=== PATIENT | male | born 1990 | race Caucasian/White ===

== ENCOUNTER 2016-05-04 03:29 | Emergency (ER) | payer OTHER ==
[2016-05-04 04:03] LABS: % IMMATURE GRANULYOCYTES 0.1 % (0.0-1.1); ABSOLUTE IMMATURE GRANULOCYTES 0.01 10^3/uL (0.00-0.10); ADD DIFF? NO; ADD MORPH? NO; ADD SCAN? NO; ATYPICAL LYMPHOCYTE FLAG 10 (0-99); FRAGMENT RBC FLAG 0 (0-99); HEMATOCRIT 43.8 % (40.0-51.0); HEMOGLOBIN 15.3 g/dL (13.7-17.5); LEFT SHIFT FLG 0 (0-99); LIPEMIA HEMOLYSIS FLAG 90 (0-99); MEAN CELL HEMOGLOBIN 30.1 pg (27.9-34.1); MEAN CELL HEMOGLOBIN CONCENTR. 34.9 g/dL (32.4-36.7); MEAN CELL VOLUME 86.2 fL (81.5-99.8); MEAN PLATELET VOLUME 9.5 fL (8.7-11.7); PLATELET CLUMPS FLAG 0 (0-99); PLATELET COUNT 217 10^3/uL (150-400); RED BLOOD CELL COUNT 5.08 10^6/uL (4.40-6.38); RED CELL DISTRIBUTION WIDTH 12.6 % (11.5-15.2)
[2016-05-04 04:17] LABS: ANION GAP 16 mEq/L (8-16); CALCIUM 9.7 mg/dL (8.5-10.4); CARBON DIOXIDE 20 mEq/l (22-31); CHLORIDE 107 mEq/L (97-110); ETHANOL SERUM < 10 mg/dL (0-10); GLOMERULAR FILTRATION RATE > 60; GLUCOSE 131 mg/dL (70-100); POTASSIUM 3.9 mEq/L (3.5-5.2); SODIUM 143 mEq/L (134-144)
--- NOTE | 2016-05-04 04:38 | EDPHY ---
H & P Stated Complaint: delusional, paranoia, possibly d/t marijuana use Source: Patient, Family Exam Limitations: No limitations - Personal History Current Tetanus/Diphtheria Vaccine: Yes - Medical/Surgical History Hx Asthma: No Hx Chronic Respiratory Disease: No Hx Diabetes: No Hx Cardiac Disease: No Hx Renal Disease: No Hx Cirrhosis: No Hx Alcoholism: No Hx HIV/AIDS: No Hx Splenectomy or Spleen Trauma: No Other PMH: PMHx: denies. PSHx: r ankle, r shoulder - Social History Smoking Status: Never smoked Time Seen by Provider: 05/04/16 03:53 HPI/ROS: HPI The patient presents with paranoia and delusions which have been present for the last several months but became worse today. The patient thinks that his girlfriend is part of the FBI and his food is being poisoned. He says he thinks his family brought him to the emergency room so that he would . The patient says that he is letting people down and has a disappointment. He has not been sleeping much for the last several weeks, waking up frequently at night. He did a 7 day fast recently and has generally not been eating much; today he only ate eggs. He does use marijuana daily and was visiting family in [place] and probably used more marijuana than usual, he returned from [facility] days ago. 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 REVIEW OF SYSTEMS Constitutional: No fever, no chills. Eyes: No discharge. ENT: No sore throat. Cardiovascular: No chest pain, no palpitations. Respiratory: No cough, no shortness of breath. Gastrointestinal: No abdominal pain, no vomiting. Genitourinary: No hematuria. Musculoskeletal: No back pain. Skin: No rashes. Neurological: No headache. PMHx: No diabetes, no asthma Soc Hx: Here with his mother and girlfriend, graduated from [employer] FHx: No family history of psychiatric disease PHYSICAL General Appearance: Alert, no distress Eyes: Pupils equal and round no pallor or injection ENT, Mouth: Mucous membranes moist Respiratory: There are no retractions, lungs are clear to auscultation Cardiovascular: Regular rate and rhythm Gastrointestinal: Abdomen is soft and non-tender, no masses, bowel sounds normal Neurological: A&O, moves all extremities Skin: Warm and dry, no rashes Musculoskeletal: Neck is supple non tender Extremities: symmetrical, full range of motion Psychiatric: Patient is oriented X 3, appears somewhat paranoid, there is no agitation (Anu Prather) Constitutional: Initial Vital Signs Temperature (C) 36.8 C 05/04/16 03:30 Heart Rate 108 H 05/04/16 03:30 Respiratory Rate 14 05/04/16 03:30 Blood Pressure 144/71 H 05/04/16 03:30 O2 Sat (%) 97 05/04/16 03:30 O2 Delivery Mode Room Air Allergies/Adverse Reactions: No Known Allergies Allergy (Unverified 04/12/12 19:40) Home Medications: Medication Instructions Recorded Melatonin [Melatonin 3 MG (*)] 3 mg PO HS PRN 05/05/16 Multivitamins [Multivitamin (*)] 1 each PO DAILY 05/05/16 Medical Decision Making ED Course/Re-evaluation: 7:30 a.m.- The patient's labs have resulted and are unremarkable except for positive THC. He is medically clear and is now awaiting evaluation by the mental health worker. His case has been signed out to Dr. Ceja. (Anu Prather) This patient was seen by mental and cleared for outpatient treatment of substance abuse and depression. I agree with this plan. (Svetlana Ceja) Differential Diagnosis: This is a healthy 25-year-old male who is coming in with several months of paranoid delusions, getting progressively worse. He is brought in by his concerned girlfriend and mother. He was making statements today that his girlfriend works for the [employer] and that is food was being poisoned. Differential diagnosis includes new onset psychosis related to underlying depression or schizophrenia, substance abuse. (Anu Prather) - Data Points Laboratory Results: Laboratory Results 05/04/16 03:55 05/04/16 03:55 Departure - Departure Disposition: Home, Routine, Self-Care Clinical Impression: Paranoid delusion, Marijuana use Condition: Fair Instructions: Cannabis Abuse (ED) Additional Instructions: Return for worsening symptoms or any concerns. Referrals: Ulices Jose MD [Primary Care Provider] - As per Instructions
[2016-05-04 12:56] VITALS: TEMP 98.6; O2SAT 97
[2016-05-04 13:37] VITALS: BP 128/67; PULSE 71; RESP 18
== END 2016-05-04 13:40 | disposition home or self-care (01) ==
LOC: EEVIPCON 03:29
DX: F22 Delusional disorders (principal); F12.90 Cannabis use, unspecified, uncomplicated
CPT/HCPCS: 80305; G0480

== ENCOUNTER 2016-05-05 08:27 | Inpatient (IN) | payer OTHER ==
--- NOTE | 2016-05-05 08:50 | EDPHY ---
Mental Health General Previous Psychiatric History: substance abuse, depression Smoking Status: Never smoked Time Patient Placed on M1 Hold: 06:30 Time Medically Cleared for Psychiatric Evaluation: 10:00 Course: patient remained stable over course of my shift, no additional interventions Narrative: Patient arrived on a mental health hold and requires inpatient psychiatric hospitalization for suicidal ideation. Signed out to Dr. Ceja at 4:00 p.m. with placement pending. (Chidi Mcdonald) CHIEF COMPLAINT: M1 hold, suicidal ideation HISTORY OF PRESENT ILLNESS: 25-year-old male presents to the emergency department by police department on an M1 hold. Patient reports suicidal ideation and hallucinations. Patient was seen in the emergency department in evaluated by mental provider yesterday and discharged. Father went to the police department today saying he was very concerned about his son and his delusions and his suicidal thoughts. Patient has a sister that committed suicide at age 24. Patient reports plan to shoot himself with a gun, he does have access to a gun. He reports he has been suicidal since I failed everyone " I shouldn't be here anymore". Patient reports daily marijuana use, denies other drug use. Patient states he has not been sleeping well, he wakes up at 2: 00 a.m. with racing thoughts. Pt also thinks he has been brought to the emergency room to . REVIEW OF SYSTEMS: A comprehensive 10 point review of systems is otherwise negative aside from elements mentioned in the history of present illness. Physical Exam Gen: Alert and Oriented, NAD HEENT: PERRL, moist mucous membranes NECK: no meningismus CV: regular rate and regular rhythm PULM: CTAB, no wheezes ABDOMEN: soft, non tender to palpation, BS present BACK: No CVA tenderness NEURO: Neurologically grossly intact EXTREMITIES: normal appearing SKIN: no rash or break in skin on exposed skin PSYCH: Flat affect, suicidal ideation, auditory hallucinations (Lois Rascon ) Medical Decision Makinam- mother, father and girlfriend at bedside. 10am-patient has been medically cleared. [facility] aware. 1230pm-mental health gravity prospecting operator at bedside. 1700-patient accepted at [address] [place] [address], Pt transferred without difficulty. (Lois Rascon) - Objective Vital Signs: Initial Vital Signs Temperature (C) 36.6 C 05/05/16 08:30 Heart Rate 76 05/05/16 08:30 Respiratory Rate 16 05/05/16 08:30 Blood Pressure 141/93 H 05/05/16 08:30 O2 Sat (%) 98 05/05/16 08:30 O2 Delivery Mode Room Air Allergies/Adverse Reactions: No Known Allergies Allergy (Unverified 04/12/12 19:40) Home Medications: Medication Instructions Recorded Melatonin [Melatonin 3 MG (*)] 3 mg PO HS PRN 05/05/16 Multivitamins [Multivitamin (*)] 1 each PO DAILY 05/05/16 Medications Given: Discontinued Medications Lorazepam (Ativan) 1 mg PO EDNOW ONE Stop: 05/05/16 13:49 Last Admin: 05/05/16 14:02 Dose: 1 mg Laboratory Results: Laboratory Results 05/05/16 08:40 05/05/16 08:40 05/05/16 05/05/16 10:40 08:40 WBC 5.44 10^3/uL (3.80-9.50) RBC 5.35 10^6/uL (4.40-6.38) Hgb 15.9 g/dL (13.7-17.5) Hct 46.9 % (40.0-51.0) MCV 87.7 fL (81.5-99.8) MCH 29.7 pg (27.9-34.1) MCHC 33.9 g/dL (32.4-36.7) RDW 12.9 % (11.5-15.2) Plt Count 214 10^3/uL (150-400) MPV 9.9 fL (8.7-11.7) Neut % (Auto) 64.7 % (39.3-74.2) Lymph % (Auto) 24.8 % (15.0-45.0) [place] % (Auto) 9.0 % (4.5-13.0) Eos % (Auto) 0.4 L % (0.6-7.6) Baso % (Auto) 0.9 % (0.3-1.7) Nucleat RBC Rel Count 0.0 % (0.0-0.2) Absolute Neuts (auto) 3.52 10^3/uL (1.70-6.50) Absolute Lymphs (auto) 1.35 10^3/uL (1.00-3.00) Absolute Monos (auto) 0.49 10^3/uL (0.30-0.80) Absolute Eos (auto) 0.02 L 10^3/uL (0.03-0.40) Absolute Basos (auto) 0.05 10^3/uL (0.02-0.10) Absolute Nucleated RBC 0.00 10^3/uL (0-0.01) Immature Gran % 0.2 % (0.0-1.1) Immature Gran # 0.01 10^3/uL (0.00-0.10) Sodium 146 H mEq/L (134-144) Potassium 4.4 mEq/L (3.5-5.2) Chloride 107 mEq/L (97-110) Carbon Dioxide 25 mEq/l (22-31) Anion Gap 14 mEq/L (8-16) BUN 12 mg/dL (7-23) Creatinine 1.1 mg/dL (0.7-1.3) Estimated GFR > 60 Glucose 116 H mg/dL (70-100) Calcium 9.9 mg/dL (8.5-10.4) Salicylates < 1.0 L mg/dL (2.0-20.0) Urine Opiates Screen NEGATIVE (NEGATIVE) Acetaminophen < 10 L mcg/mL (10.0-30.0) Urine Barbiturates NEGATIVE (NEGATIVE) Ur Phencyclidine Scrn NEGATIVE (NEGATIVE) Ur Amphetamine Screen NEGATIVE (NEGATIVE) U Benzodiazepines Scrn NEGATIVE (NEGATIVE) Urine Cocaine Screen NEGATIVE (NEGATIVE) U Marijuana (THC) Screen NON-NEGATIVE H (NEGATIVE) Ethyl Alcohol < 10 mg/dL (0-10) Departure - Departure Disposition: [facility] IP Clinical Impression: Suicidal ideation Condition: Good
[2016-05-05 08:51] LABS: % IMMATURE GRANULYOCYTES 0.2 % (0.0-1.1); ABSOLUTE IMMATURE GRANULOCYTES 0.01 10^3/uL (0.00-0.10); ADD DIFF? NO; ADD MORPH? NO; ADD SCAN? NO; ATYPICAL LYMPHOCYTE FLAG 20 (0-99); FRAGMENT RBC FLAG 0 (0-99); HEMATOCRIT 46.9 % (40.0-51.0); HEMOGLOBIN 15.9 g/dL (13.7-17.5); LEFT SHIFT FLG 0 (0-99); LIPEMIA HEMOLYSIS FLAG 90 (0-99); MEAN CELL HEMOGLOBIN 29.7 pg (27.9-34.1); MEAN CELL HEMOGLOBIN CONCENTR. 33.9 g/dL (32.4-36.7); MEAN CELL VOLUME 87.7 fL (81.5-99.8); MEAN PLATELET VOLUME 9.9 fL (8.7-11.7); PLATELET CLUMPS FLAG 0 (0-99); PLATELET COUNT 214 10^3/uL (150-400); RED BLOOD CELL COUNT 5.35 10^6/uL (4.40-6.38); RED CELL DISTRIBUTION WIDTH 12.9 % (11.5-15.2)
[2016-05-05 09:15] LABS: ANION GAP 14 mEq/L (8-16); CALCIUM 9.9 mg/dL (8.5-10.4); CARBON DIOXIDE 25 mEq/l (22-31); CHLORIDE 107 mEq/L (97-110); CREATININE 1.1 mg/dL (0.7-1.3); ETHANOL SERUM < 10 mg/dL (0-10); GLOMERULAR FILTRATION RATE > 60; GLUCOSE 116 mg/dL (70-100); POTASSIUM 4.4 mEq/L (3.5-5.2); SODIUM 146 mEq/L (134-144)
[2016-05-05 09:17] LABS: SALICYLATE < 1.0 mg/dL (2.0-20.0)
[2016-05-05] MEDS ORDERED: LORazepam 1 MG TAB PO ONE (13:48)
[2016-05-05] MEDS ORDERED: OLANZapine DISINTEGR 10 MG TAB PO PRN (17:56)
[2016-05-05] MEDS ORDERED: MAG HYDROX/AL HYDROX/SIMETH 30 ML UDCUP PO PRN (17:56)
[2016-05-05] MEDS ORDERED: LORazepam 0.5 MG TAB PO PRN (17:56)
[2016-05-05] MEDS ORDERED: ACETAMINOPHEN 325 MG TAB PO PRN (17:56)
[2016-05-05] MEDS ORDERED: MAGNESIUM HYDROXIDE 30 ML UDCUP PO PRN (17:56)
[2016-05-05] MEDS ORDERED: MELATONIN 3 MG TAB PO PRN (18:00)
[2016-05-05] MEDS: MULTIVITAMINS 1 EACH TAB PO SCH (19:38)
[2016-05-06] MEDS: MULTIVITAMINS 1 EACH TAB PO SCH (08:54)
--- NOTE | 2016-05-06 09:50 | GCON ---
[f rep st] CONSULTATION DATE OF CONSULTATION: 05/06/2016 REFERRING PHYSICIAN: Catalina Lange MD REASON FOR CONSULTATION: Medical evaluation. HISTORY OF PRESENT ILLNESS: This is a 25-year-old male who I am seeing on the behavioral health unit . He was admitted through the emergency department because of suicidal ideation and hallucinations. He is a daily marijuana user and had been evaluated the day prior to admission in the emergency depa rtment and released. His father brought him back to the emergency department because of delusions an d suicidal thoughts. His ideation included thoughts that he "had failed everyone" and "he shouldn't be here anymore." He has access to a gun and he threatened to shoot himself. Medically, he denies a ny medical problems. He denies asthma, allergies, high blood pressure, diabetes, and renal problems. He denies taking any medications for medical reasons. PAST SURGICAL HISTORY: He has had surgery done on his right shoulder and his right ankle secondary t o injuries due to football. ALLERGIES: None. FAMILY HISTORY: Positive for psychiatric disorder with a sister committing suicide at the age of 24. SOCIAL HISTORY: Tobacco: None. Drugs: He denies use of drugs other than marijuana and specificall y denies the use of cocaine, LSD, methamphetamine. Socially, he has family members in the area with his mother and father living in [place]. 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 REVIEW OF SYSTEMS: A 10-point review of systems is entirely negative. Specifically, denies any rece nt acute illness, sore throat, cough, fever, body aches or rash. He has no prior history of any card iovascular, pulmonary, or gastrointestinal difficulties. Medications are in the EMR and have been prescribed by the psychiatric physician. PHYSICAL EXAMINATION: GENERAL: This is a pleasant, alert gentleman, who gives rather rambling answe rs to specific questions as to why he has been admitted to the psychiatric unit. He, again, reiterat es the fact that he feels he has failed everyone and has an idea about how to correct the problems of concussions in football. He is oriented x3 and very mildly agitated. VITAL SIGNS: Show he had misti y mild hypertension on admission, but that is declining successively during his stay. He is afebrile . HEENT: Shows TMs are cabrera. The right TM is primarily occluded with cerumen and cannot be seen ex cept scantly. There is no drainage, tenderness. Scalp shows no signs of trauma. Tongue and buccal mucosa are normal, without signs of trauma. Teeth are in good repair. NECK: Supple, without mening ismus. Thyroid could not be palpated, nor is it tender. CHEST WALL: Nontender to palpation. Nataliya l inspiratory excursion. LUNGS: Clear to percussion and auscultation. HEART: Singular S1 and S2. No murmur, gallop, or rub. ABDOMEN: Flat, muscular, normoactive bowel sounds. No masses, tenderne ss, or organomegaly. EXTREMITIES: No edema, cyanosis, clubbing, track mata. NEUROLOGIC: He is or iented x3 and slightly agitated. Cranial nerves 2 through 12 are intact to specific testing. His mo tor and sensory function are normal. LABORATORY: CBC and chemistry panel are normal. Toxicology shows it is positive for marijuana as th e patient has admitted to smoking marijuana daily. ASSESSMENT: 1. Acute suicidal ideation. Patient has been admitted on the behavioral health unit. 2. Drug abuse of marijuana. Patient reports smoking this daily. He denies other drug abuse. 3. The patient is medically cleared for his stay on the behavioral health unit. 4. Mild hypertension on admission. I would simply follow this and watch it. I do not believe it ne eds to be treated as he has no history of hypertension. This is probably only secondary to his agita tion. TIME: This consult required 40 minutes. If you need further assistance, please call. /[id number]/MODL
--- NOTE | 2016-05-06 13:36 | BAPA ---
[f rep st] ADMISSION PSYCHIATRIC ASSESSMENT DATE OF SERVICE: 05/06/2016 CHIEF COMPLAINT: A little reality check, I had an "epiphany." HISTORY OF PRESENT ILLNESS: The patient is a 25-year-old, / male who presented to the ED on an M1 hold. The patient had initially been evaluated in the [facility] 05/04/2016 for paranoia and delusions that had been present for the past several months but were worse that day. The patient thought his girlfriend was part of the FBI and that his food is being poisoned. He thought his family brought him to the emergency room so he would . Patient reported he was letting people down and has a disappointment. He has not been sleeping much for the past several weeks, waking up frequently at night. He recently did a 7 day fast and was not eating much. He had been using marijuana daily and went to [place] with his father and used more marijuana than usually and returned from the trip 6 days ago. The patient has been doing a lot of research on chronic traumatic encephalopathy , as he previously played football. The patient cleared in the ER 05/04/16 and he was sent home only to be returned by his family for getting worse, stating that he was having suicidal thoughts and could not sleep. The patient has a half-sister who committed suicide at age 24. The patient reported a recent plan to shoot himself with a gun and did have access to a gun. The patient reports he has been suicidal because "I failed everyone, I shouldn't be here any more." The patient says he has not been sleeping well, wakes up at 2:00 a.m. with racing thoughts. He was given lorazepam in the ED. The patient told the [facility] worker, "I should not be here I failed everyone. I am selfish and a narcissist and I do not deserve to be here". The patient reports being unable to sleep for the past few days. He was talking to his girlfriend and became increasingly upset and self hating, saying he did not deserve to live and then got his gun and laid it on the bed next to him. His girlfriend was able to get it from him and he left the house saying he was going to his parent's house but did not and was missing for 2 hours, while his girlfriend and mother contacted the police who found him and brought him to the [facility] ED for psychiatric assessment. The patient thought that his recent ingestion of marijuana may have interfered with his thought processes. When patient was seen in the ER his speech was pressured with labile mood, crying, laughing, and smiling inappropriately, acknowledged hearing voices but was vague and said, "does not everyone here voices?" The patient has no previous psychiatric hospitalizations, no suicide attempts, or any history of being on any psychiatric medications. PSYCHIATRIC HISTORY: The patient has never been in a psychiatric hospital, has never attempted suicide, has never been on psychiatric medications. FAMILY HISTORY: His half sister after she came out as a lesbian and committed suicide. Paternal and maternal history of alcohol and marijuana use. MEDICAL HISTORY: Patient has 5-6 concussions from playing football in college and on the practice squad for [employer] from 2013- 2015. PAST SURGICAL HISTORY: Surgical repair of right ankle in 2013 and right shoulder injury in 2009. SUBSTANCE ABUSE: First drink at age 18. Infrequent alcohol use, 1 drink every 2 weeks or so. First tried marijuana at age 18. Current use is daily, 3-4 bowls a day. Recent increase use during a trip to [place] with his father. SOCIAL HISTORY: The patient was born in [place]. He has a sister who is 20. He also has 2 half-sisters and a half-brother. His half-brother is also 20. He states that the half siblings are the result of his father having a girlfriend in [place]. His sister suicided 04/13/2015 at age 24. The patient has a girlfriend whom he lives with. They have been together 4 years. They currently live in his late grandmother's house so he does not have to pay rent. Father is a assistant field hockey coach for a high school in [place]. Normal developmental milestones. Denies any history of abuse but states he witnessed arguing between his parents. Is close to his mother and girlfriend. Has a BA from [employer] where he played college football. 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 Currently is unemployed. He has been researching chronic traumatic encephalopathy, and states his father and uncle have known 2 teammates who committed suicide. No legal issues. He enjoys golf, scuba diving, reading, hiking and being outdoors. MENTAL STATUS: Patient is alert and oriented x4. Mood is depressed. Affect is appropriate. The patient denies any current paranoia but states recently thought girlfriend was in the FBI and started goggling her name and found that her name was associated with the [facility]. He denies ever having auditory or visual hallucinations, although he told the [facility] worker he was, denies them now. His thoughts are vague at times. He states, "I was careless with my words". States he feels he failed everyone and he should not be here any more. He currently denies feeling suicidal or homicidal. Denies current auditory or visual hallucinations. Denies paranoid ideation. Speech is tangential at times. States he slept well last night. Appetite is good. Insight and judgment are fair. IMPRESSION: 1. Psychosis, not otherwise specified. 2. Rule out cannabis induced psychosis. 3. Cannabis use disorder, severe. 4. Patient with shoulder and ankle injury. 5. [place] V on admission is 20. PLAN: Patient was offered Zyprexa tonight to help with sleep, paranoia and mood stabilization, however he declined so will order it prn and encourage him to take it. He was told that the symptoms may be precipitated by marijuana and he states he no longer will use marijuana and threw all his marijuana away. The patient was seen by the medical physician and will be seen by the wound care rn. Will continue Ativan and Zyprexa p.r.n. and observe the patient's mood and behavior, as well as sleep and mental status. The patient is appropriate for inpatient psychiatric hospitalization. /[id number]/MODL MTDD
[2016-05-07] MEDS: MULTIVITAMINS 1 EACH TAB PO SCH (08:33)
--- NOTE | 2016-05-07 11:02 | SOAPPROG ---
SOAP Progress Note Assessment/Plan: Assessment: Pt is a 25 y/o male who has no previous psych hx who has been using large amounts of THC who has had paranoid delusions and AH for the past 2 months. Pt was put on an M1 after he presented to the ED with SI and had gotten his gun out and his GF took it from him. Plan:con't Zyprexa 10mg QHS for psychosis pt has agreed to sign in Vol 05/07/16 10:59 Subjective: "A little tired. I got my first batch of meds last night." Objective: Vital Signs Temp Pulse Resp BP Pulse Ox 36.6 C 78 14 133/81 H 99 05/07/16 06:00 05/07/16 06:00 05/07/16 06:00 05/07/16 06:00 05/07/16 06:00 Pt is A+O x4 mood-"tired" affect-appr denies current AH but had recently + par I-thought another pt was a spy denies S/H I thoughts-logical speech-wnl slept 7 hours appetite-wnl no ELYSSA memory/conc-fair I/J-fair - Time Spent With Patient Time Spent With Patient: 20' - Pending Discharge Pending Discharge Within 24 Hours: No Pending Discharge Within 48 Hours: Yes Pending Discharge Date: 05/09/16 Pending Discharge Time: 11:00 ICD10 Worksheet Patient Problems: Problems Problem Status Diagnosed Suicidal ideation Acute
[2016-05-07] MEDS ORDERED: OLANZapine DISINTEGR 10 MG TAB PO SCH (21:00)
[2016-05-08 06:12] VITALS: BP 123/71; PULSE 71; RESP 12; TEMP 98.1; O2SAT 96
[2016-05-08] MEDS: MULTIVITAMINS 1 EACH TAB PO SCH (08:21)
--- NOTE | 2016-05-08 12:57 | BDS ---
[f rep st] [facility] DISCHARGE SUMMARY CHIEF COMPLAINT: "A little reality check, I had an epiphany." HISTORY OF PRESENT ILLNESS: The patient is a 25-year-old, / male who presented to the ED on an M1 hold. The patient had been evaluated 05/04/2016 in the ED for paranoia and delusions that had been present for the past several months but were worse that day. The patient thought his girlfriend was part of the FBI and that his food was being poisoned. He thought his family brought him to the emergency room so he would . The patient reported he was letting people down and had a disappointment. He had not been sleeping much for the past several weeks, waking up frequently at night. He also did a 7-day fast and was not eating much. He has been using marijuana daily recently increased during a trip with his father to [place]. Patient was released and cleared to the ED and sent home only to be returned by his family on 05/05/2016 for re-evaluation stating he is having suicidal thoughts and could not sleep. The patient reported he had a plan to shoot himself with a gun and did have access to a gun and had taken the gun out and the girlfriend took it from him. ADMISSION DIAGNOSES: Psychosis, not otherwise specified; rule out cannabis- induced psychosis; cannabis use disorder, severe; rule out schizophreniform disorder; patient with shoulder and knee injury. [place] V on admission was 20. HOSPITAL COURSE: The patient was started on Zyprexa 10 mg at bedtime. He denied auditory hallucinations throughout his hospitalization; however, he did report that he had auditory hallucinations to the ED evaluators. He denied being paranoid to this MD; however, he told other staff on the unit he thought another patient was a spy. He signed-in voluntarily; however, the next day after discharge appointments were set up he requested discharge because he wanted to return home with his family. The patient denied being suicidal throughout his stay and denied having any auditory or visual hallucinations. He did not express any paranoid delusions the day of discharge. He was eating and sleeping well and had a good energy level. He participated in groups and activities and was compliant with medications with no side effects. DISCHARGE MEDICATIONS: Zyprexa 10 mg at bedtime, continue melatonin 3 mg at bedtime and multivitamin daily. MENTAL STATUS ON DISCHARGE: The patient is alert and oriented x4. Mood is euthymic. Affect is appropriate. Thoughts are logical and coherent. Speech normal rate and rhythm. Sleep, appetite and energy level are normal. Denies auditory or visual hallucinations. Denies suicidal or homicidal ideation and contracts for safety upon discharge. IQ, fund of knowledge, memory and concentration are intact. Insight and judgment are improved since admission. DISCHARGE DIAGNOSES: Psychosis, not otherwise specified; rule out cannabis- induced psychosis; cannabis use disorder, severe; rule out schizophreniform disorder; patient with shoulder and knee injury. Global Assessment of Functioning on discharge is 55. PLAN: Patient will be followed with a provider provided by the career coach. The patient was told to abstain from marijuana and he agreed to this. Patient is psychiatrically medically stable for discharge and was discharged voluntarily. /[id number]/MODL MTDD
== END 2016-05-08 14:55 | disposition home or self-care (01) | DRG 885 ==
LOC: BBEH 17:10
PROVIDERS: ADMIT Psychiatry & Neurology Psychiatry; ATTEND Psychiatry & Neurology Psychiatry
DX: F29 Unspecified psychosis not due to a substance or known physiological condition (principal); F12.10 Cannabis abuse, uncomplicated
CPT/HCPCS: 80305; G0480

== ENCOUNTER 2017-08-21 18:03 | Emergency (ER) | payer OTHER ==
[2017-08-21] MEDS ORDERED: NS 1,000 ML IV ONE (18:08)
--- NOTE | 2017-08-21 18:08 | EDPHY ---
H & P Time Seen by Provider: 08/21/17 18:07 HPI/ROS: CHIEF COMPLAINT: Vasovagal syncope HISTORY OF PRESENT ILLNESS: The patient presents the ED after an episode of vasovagal syncope. The patient reportedly stood up to answer the door when he was observed to have a syncopal episode. The patient was assisted to the ground and did not sustain traumatic injury. The patient has no complaints of chest pain, shortness of breath, recent illness or fever. He denies any antecedent palpitations. The patient recently has started taking Lexapro. The patient is currently on Zyprexa as well. The patient reports he has recently begun a low-carbohydrate diet and likely did not have much to drink today. REVIEW OF SYSTEMS: A comprehensive 10 point review of systems is otherwise negative aside from elements mentioned in the history of present illness. Source: Patient Exam Limitations: No limitations - Medical/Surgical History Hx Asthma: No Hx Chronic Respiratory Disease: No Hx Diabetes: No Hx Cardiac Disease: No Hx Renal Disease: No Hx Cirrhosis: No Hx Alcoholism: No Hx HIV/AIDS: No Hx Splenectomy or Spleen Trauma: No Other PMH: PMHx: denies. PSHx: r ankle, r shoulder - Social History Smoking Status: Never smoked - Physical Exam Exam: General Appearance: Alert, no distress Eyes: Pupils equal and round no pallor or injection ENT, Mouth: Mucous membranes moist Respiratory: There are no retractions, lungs are clear to auscultation Cardiovascular: Regular rate and rhythm Gastrointestinal: Abdomen is soft and nontender, no masses, bowel sounds normal Neurological: A&O, normal motor function, normal sensory exam, normal cranial nerves Skin: Warm and dry, no rashes Musculoskeletal: Neck is supple nontender Extremities: symmetrical, full range of motion Psychiatric: Patient is oriented X 3, there is no agitation Constitutional: Initial Vital Signs Temperature (C) 36.8 C 08/21/17 18:10 Heart Rate 71 08/21/17 18:10 Respiratory Rate 16 08/21/17 18:10 Blood Pressure 129/62 H 08/21/17 18:10 O2 Sat (%) 96 08/21/17 18:10 O2 Delivery Mode Room Air Allergies/Adverse Reactions: No Known Allergies Allergy (Unverified 04/12/12 19:40) Home Medications: Medication Instructions Recorded Melatonin [Melatonin 3 MG (*)] 3 mg PO HS PRN #0 tab 01/17/17 Multivitamins [Multivitamin (*)] 1 each PO DAILY #0 tab 05/08/16 OLANZapine DISINTEGR [ZyPREXA 10 mg PO HS #30 tab 05/08/16 ZYDIS (*)] Medical Decision Making - Diagnostics EKG Interpretation: EKG: Complete interpretation has been separately recorded in the [facility] archive. Summary impression: Sinus rhythm, rate 75 ED Course/Re-evaluation: The patient presents to the ED after an episode of vasovagal syncope likely secondary to low calorie intake and dehydration. The patient had an IV established. He received 1 L of normal saline. EKG demonstrates no evidence of an obvious arrhythmia. The patient's CBC and electrolyte panel are within normal limits. The patient was placed on a monitoring and evaluation advisor and observed in the emergency department. He had no hypotension or tachycardia throughout his stay in the ED. After receiving IV fluids, the patient was able to ambulate without recurrent orthostasis. At this point time I do feel the patient can safely be discharged home with instructions to return to the ED for any recurrent syncope , chest pain, shortness of breath or other concerns. Differential Diagnosis: Differential diagnosis considered includes acute coronary syndrome, dehydration , metabolic abnormality, vasovagal episode - Data Points Laboratory Results: Laboratory Results 08/21/17 18:20 08/21/17 18:20 08/21/17 08/21/17 18:20 18:20 WBC 6.14 10^3/uL 10^3/uL (3.80-9.50) RBC 5.44 10^6/uL 10^6/uL (4.40-6.38) Hgb 16.4 g/dL g/dL (13.7-17.5) Hct 48.5 % % (40.0-51.0) MCV 89.2 fL fL (81.5-99.8) MCH 30.1 pg pg (27.9-34.1) MCHC 33.8 g/dL g/dL (32.4-36.7) RDW 12.5 % % (11.5-15.2) Plt Count 239 10^3/uL 10^3/uL (150-400) MPV 9.6 fL fL (8.7-11.7) Neut % (Auto) 39.8 % % (39.3-74.2) Lymph % (Auto) 45.1 % H % (15.0-45.0) [place] % (Auto) 9.0 % % (4.5-13.0) Eos % (Auto) 4.9 % % (0.6-7.6) Baso % (Auto) 1.0 % % (0.3-1.7) Nucleat RBC Rel Count 0.0 % % (0.0-0.2) Absolute Neuts (auto) 2.45 10^3/uL 10^3/uL (1.70-6.50) Absolute Lymphs (auto) 2.77 10^3/uL 10^3/uL (1.00-3.00) Absolute Monos (auto) 0.55 10^3/uL 10^3/uL (0.30-0.80) Absolute Eos (auto) 0.30 10^3/uL 10^3/uL (0.03-0.40) Absolute Basos (auto) 0.06 10^3/uL 10^3/uL (0.02-0.10) Absolute Nucleated RBC 0.00 10^3/uL 10^3/uL (0-0.01) Immature Gran % 0.2 % % (0.0-1.1) Immature Gran # 0.01 10^3/uL 10^3/uL (0.00-0.10) Sodium 142 mEq/L mEq/L (135-145) Potassium 4.1 mEq/L mEq/L (3.5-5.2) Chloride 101 mEq/L mEq/L (97-110) Carbon Dioxide 28 mEq/l mEq/l (22-31) Anion Gap 13 mEq/L mEq/L (8-16) BUN 17 mg/dL mg/dL (7-23) Creatinine 1.1 mg/dL mg/dL (0.7-1.3) Estimated GFR > 60 Glucose 95 mg/dL mg/dL (70-100) Calcium 9.3 mg/dL mg/dL (8.5-10.4) Medications Given: Discontinued Medications Sodium Chloride (Ns) 1,000 mls @ 0 mls/hr IV EDNOW ONE; Wide Open PRN Reason: Protocol Stop: 08/21/17 18:09 Last Admin: 08/21/17 18:15 Dose: 1,000 mls Departure - Departure Disposition: Home, Routine, Self-Care Clinical Impression: Vasovagal syncope, Dehydration Condition: Good Instructions: Hypotension (ED) Additional Instructions: 1. Please return to the emergency department for any recurrent passing out, chest pain, difficulty breathing or other concerns. 2. Please try and increase your fluid intake as mild dehydration likely contributed to your symptoms today. 3. Follow up with your primary care provider as scheduled.
--- NOTE | 2017-08-21 18:23 | CPEKG ---
Heart Rate: 75 RR Interval: 800 P-R Interval: 160 QRSD Interval: 96 QT Interval: 368 QTC Interval: 411 P Commerce: 44 QRS Commerce: 67 T Wave Commerce: 4 EKG Severity - NORMAL ECG - EKG Impression: SINUS RHYTHM Electronically Signed By: Lakhwinder Jaquez 21-Aug-2017 19:06:24
[2017-08-21 18:27] LABS: PLATELET COUNT 239 10^3/uL (150-400)
[2017-08-21 19:22] VITALS: BP 132/80
== END 2017-08-21 19:21 | disposition home or self-care (01) ==
LOC: EDUNIT#
DX: R55 Syncope and collapse (principal); E86.9 Volume depletion, unspecified